=== PATIENT | male | born 1970 | race Caucasian/White ===

== ENCOUNTER 2020-01-11 13:39 | Emergency (ER) | payer BC ==
[~2020-01-11] VITALS: Ht 172.7 cm; Wt 104.5 kg
[2020-01-11 13:48] VITALS: BP 124/78; TEMP 98
[2020-01-11] MEDS ORDERED: ZYRTEC ALLERGY10 MG PO (13:57)
[2020-01-11 16:35] VITALS: PULSE 82
== END 2020-01-11 15:21 | disposition home or self-care (01) ==
LOC: COL.ER 13:39
DX: M79.89 Other specified soft tissue disorders (principal); Z87.891 Personal history of nicotine dependence